=== PATIENT | female | born 1985 | race Caucasian/White ===

== ENCOUNTER 2025-03-04 17:41 | Emergency (ER) | payer OTHER ==
[~2025-03-04] VITALS: Ht 162.6 cm; Wt 69.0 kg
[2025-03-04 18:00] VITALS: TEMP 36.9; O2SAT 100
[2025-03-04] MEDS: SODIUM CHLORIDE 0.9% 1,000 ML IV ONE (22:44)
[2025-03-04] MEDS: METOCLOPRAMIDE HCL 10MG/2ML VIAL IV ONE (22:44)
[2025-03-04] MEDS: ACETAMINOPHEN 500MG TABLET PO ONE (22:44)
[2025-03-04 22:57] LABS: BASOPHILS % 0.4 % (0.0-2.0); EOSINOPHILS % 1.1 % (0.0-5.0); HEMATOCRIT. 43.6 % (36.0-48.0); HEMOGLOBIN. 14.7 g/dL (12.0-16.0); LYMPHOCYTES % 33.0 % (20.0-50.0); MEAN PLATELET VOLUME 7.6 fl (7.4-10.4); MONOCYTES % 5.4 % (2.0-8.0); NEUTROPHILS % 60.1 % (40.0-76.0); PLATELET 381 x1000/uL (130-400); RED BLOOD CELL COUNT 4.89 mill/uL (4.2-5.4); RED CELL DISTRIBUTION WIDTH 12.5 % (11.6-14.6)
[2025-03-04] MEDS: KETOROLAC 15MG/ML VIAL IV ONE (22:58)
[2025-03-04 23:09] LABS: HCG SCREEN NEGATIVE
[2025-03-04 23:11] LABS: CREATININE 0.6 mg/dL (0.6-1.0)
[2025-03-04 23:12] LABS: UREA NITROGEN BLOOD 9 mg/dL (9-23)
[2025-03-04 23:13] LABS: ASPARTATE AMINOTRANSFERASE 24 IU/L (<34); TROPONIN I HIGH SENSITIVITY < 4 ng/L (3.0-34)
[2025-03-04 23:14] LABS: BILIRUBIN DIRECT < 0.1 mg/dL (<=3.0); BILIRUBIN TOTAL 0.4 mg/dL (0.1-1.0); PROTEIN TOTAL 7.3 g/dL (6.0-8.3)
[2025-03-04] MEDS ORDERED: SUMA50TA16 MT (23:24)
[2025-03-04 23:38] VITALS: BP 136/82; PULSE 77; RESP 15; O2SAT 100
== END 2025-03-04 23:39 | disposition home or self-care (01) ==
LOC: ER 17:41 → CMPBEDREQ 03-06 10:47
DX: R51.9 Headache, unspecified (principal)
CPT/HCPCS: 99285; 96374; 71045; 96361; 96375; 80076; 80048; 81025; 84703; 83880; 83690; 83735; 85025; 84484; 36415; 93005; J1885; J2765; J7030